=== PATIENT | female | born 1940 | race Caucasian/White ===

== ENCOUNTER 2018-04-10 13:42 | Emergency (ER) | payer OTHER ==
[~2018-04-10] VITALS: Ht 157.5 cm; Wt 59.9 kg
[~2018-04-10 13:42] MED LIST: HYDROCODON-ACE1 EAC7 PO
[2018-04-10] MEDS ORDERED: AUGMENTIN875 MG PO (17:19)
[2018-04-10 19:33] VITALS: BP 149/79
== END 2018-04-10 19:33 | disposition home or self-care (01) ==
LOC: EME 13:42
PROC: 3E0234Z Introduction of Serum, Toxoid and Vaccine into Muscle, Percutaneous Approach (ICD-10-PCS; principal; 2018-04-10)
DX: S61.253A Open bite of left middle finger without damage to nail, initial encounter (principal); S61.451A Open bite of right hand, initial encounter; S81.852A Open bite, left lower leg, initial encounter; S61.212A Laceration without foreign body of right middle finger without damage to nail, initial encounter; S50.812A Abrasion of left forearm, initial encounter; W55.51XA Bitten by raccoon, initial encounter; M85.842 Other specified disorders of bone density and structure, left hand; Z23 Encounter for immunization; Z29.14 Encounter for prophylactic rabies immune globulin; Z85.3 Personal history of malignant neoplasm of breast; Z87.891 Personal history of nicotine dependence
CPT/HCPCS: 73130; 99281; 99284; J2270